=== PATIENT | male | born 2000 | race Caucasian/White ===

== ENCOUNTER 2020-08-10 05:53 | Inpatient (IN) | payer MEDICAID ==
[~2020-08-10] VITALS: Ht 165.1 cm; Wt 83.1 kg
[2020-08-10] VITALS (9 sets, daily range): BP systolic 108–121; BP diastolic 63–76
[2020-08-10] MEDS ORDERED: SODIUM CHLORIDE 0.9% 1,000 ML ONE (06:14)
[2020-08-10] MEDS ORDERED: NALOXONE HCL 1 MG/ML SYRINGE IVP ONE (06:15)
[2020-08-10] MEDS ORDERED: SODIUM CHLORIDE 0.9% 1,000 ML IV ONE (06:15)
[2020-08-10 06:21] LABS: BASOPHILS % (AUTO) 0.3 % (0.0-2.0); EOSINOPHILS % (AUTO) 0.2 % (1.0-6.0); HEMATOCRIT 44.5 % (41-53); HEMOGLOBIN 15.1 g/dL (13.5-17.5); LYMPHOCYTES # (AUTO) 2.5 K/uL (1.0-4.8); LYMPHOCYTES % (AUTO) 24.7 % (22.0-44.0); MEAN CORPUSCULAR HEMOGLOBIN 29.1 pg (26.0-34.0); MEAN CORPUSCULAR HGB CONC 33.9 G/dL (31.0-37.0); MEAN CORPUSCULAR VOLUME 86 fL (80-100); MONOCYTES % (AUTO) 9.5 % (2.0-9.0); NEUTROPHILS # (AUTO) 6.5 K/uL (1.8-7.7); NEUTROPHILS % (AUTO) 65.3 % (40.0-70.0); PLATELET COUNT (AUTO) 251 K/uL (150-450); RED BLOOD CELL COUNT(AUTO) 5.17 MIL/uL (4.50-5.90); RED CELL DISTRIBUTION WIDTH 13.5 % (11.5-14.5)
[2020-08-10 06:28] LABS: APPEARANCE,URINE CLEAR (CLEAR); BILIRUBIN,URINE NEGATIVE (NEGATIVE); GLUCOSE, URINE (UA) NEGATIVE (NEGATIVE); KETONES,URINE NEGATIVE (NEGATIVE); LEUKOCYTE ESTERASE ,URINE NEGATIVE (NEGATIVE); NITRATE,URINE NEGATIVE (NEGATIVE); OCCULT BLOOD,URINE SMALL (NEGATIVE); PH,URINE 5.5 (5.0-8.0); PROTEIN,URINE NEGATIVE (NEGATIVE); UROBILINOGEN,URINE 0.2 mg/dL (<=1.0)
[2020-08-10 06:35] LABS: AMPHET/METH SCREEN,URINE NEGATIVE (NEGATIVE); BARBITURATE SCREEN, URINE NEGATIVE (NEGATIVE); BENZODIAZEPINES SCREEN,URINE POSITIVE (NEGATIVE); CANNABINOID SCREEN,URINE POSITIVE (NEGATIVE); COCAINE SCREEN,URINE POSITIVE (NEGATIVE); METHADONE SCREEN, URINE NEGATIVE (NEGATIVE); OPIATE SCREEN,URINE NEGATIVE (NEGATIVE)
[2020-08-10 06:38] LABS: ANION GAP 13 mmol/L (8-16); CALCIUM, TOTAL 9.1 mg/dL (8.8-10.5); CARBON DIOXIDE 25 mmol/L (22-29); CHLORIDE 105 mmol/L (98-107); CREATININE 0.75 mg/dL (0.60-1.30); GLOMERULAR FILTR. RATE CALC > 60 mL/min (>60); GLUCOSE,RANDOM 95 mg/dL (70-110); POTASSIUM 3.9 mmol/L (3.5-5.1); SODIUM SERUM 143 mmol/L (136-145); UREA NITROGEN, BLOOD 5 mg/dL (7-18)
[2020-08-10 06:39] LABS: PHENCYCLIDINE SCREEN,URINE NEGATIVE (NEGATIVE)
[2020-08-10 06:44] LABS: SALICYLATE 1.3 mg/dL (2.8-20.0)
[2020-08-10 06:49] LABS: INR 0.9 (0.9-1.1)
[2020-08-10 07:02] LABS: ALANINE AMINOTRANSFERASE 126 U/L (12-78); ALBUMIN 3.9 g/dL (3.4-5.0); ALKALINE PHOSPHATASE 112 U/L (46-116); ASPARTATE AMINOTRANSFERASE 43 U/L (15-37); BILIRUBIN,TOTAL 0.2 mg/dL (0.1-1.0); CREATINE KINASE, TOTAL ONLY 106 U/L (39-308); TOTAL PROTEIN, SERUM 7.8 g/dL (6.4-8.2)
[2020-08-10 07:08] LABS: ACETAMINOPHEN < 2 mcg/mL (10-30)
[2020-08-10 08:12] LABS: BACTERIA,URINE None Seen /HPF (None Seen); WBC,URINE None Seen /HPF (0-5)
[2020-08-10 09:20] LABS: COVID AG,FIA SOURCE NASOPHARYNGEAL
[2020-08-10] MEDS ORDERED: LORazepam 2 MG TABLET PO PRN (13:45)
[2020-08-10] MEDS ORDERED: HALOPERIDOL 5 MG TABLET PO PRN (13:45)
[2020-08-11] VITALS (14 sets, daily range): BP systolic 14–124; BP diastolic 60–87
[2020-08-11] MEDS: ZOLPIDEM TARTRATE 10 MG TABLET PO PRN ×2 (00:25→21:32)
[2020-08-11] MEDS ORDERED: ChlordiazePOXIDE HCL 25 MG CAPSULE PO PRN (08:15)
[2020-08-11] MEDS ORDERED: LOPERAMIDE HCL 2 MG CAPSULE PO PRN (08:30)
[2020-08-11] MEDS ORDERED: NICOTINE 14 MG/24 HOUR PATCH TD PRN (08:30)
[2020-08-11] MEDS ORDERED: IBUPROFEN 400 MG TABLET PO PRN (08:30)
[2020-08-11] MEDS ORDERED: PETROLATUM,WHITE 28 GM JELLY TP PRN (08:30)
[2020-08-11] MEDS ORDERED: GuaiFENesin/D-METHORPHAN [SUGAR-FREE] 200-20MG/10 ML SYRUP UDCUP PO PRN (08:30)
[2020-08-11] MEDS ORDERED: MAG HYDROX/AL HYDROX/SIMETH ES 30 ML SUSPENSION UDCUP PO PRN (08:30)
[2020-08-11] MEDS ORDERED: MAGNESIUM HYDROXIDE SUSPENSION 30 ML UDCUP PO PRN (08:30)
[2020-08-11] MEDS ORDERED: ALBUTEROL SULFATE HFA 90 MCG/PUFF 8 GM INHALER IH PRN (08:30)
[2020-08-11] MEDS ORDERED: CloNIDine HCL 0.1 MG TABLET PO PRN (08:30)
[2020-08-11] MEDS ORDERED: ONDANSETRON HCL 4 MG TABLET PO PRN (08:30)
[2020-08-11] MEDS ORDERED: ACETAMINOPHEN 325 MG TABLET PO PRN (08:30)
[2020-08-11] MEDS ORDERED: DOCUSATE SODIUM 100 MG CAPSULE PO PRN (08:30)
[2020-08-12 01:00] VITALS: BP 110/57
[2020-08-12 01:57] VITALS: BP 110/57
[2020-08-12 06:46] VITALS: BP 105/52
[2020-08-12] MEDS ORDERED: ChlordiazePOXIDE HCL 25 MG CAPSULE PO PRN (07:00)
[2020-08-12 08:57] VITALS: BP 125/68
[2020-08-12] MEDS ORDERED: ChlordiazePOXIDE HCL 25 MG CAPSULE PO SCH (09:00)
[2020-08-14] MEDS ORDERED: ChlordiazePOXIDE HCL 10 MG CAPSULE PO PRN (07:00)
[2020-08-14] MEDS ORDERED: ChlordiazePOXIDE HCL 10 MG CAPSULE PO SCH (09:00)
[2020-08-14 09:42] LABS: HEMOGLOBIN A1C 5.1 % (3.8-5.6)
[2020-08-14 10:01] LABS: CHOL/HDL RATIO 5.3 (4.2-7.3); CHOLESTEROL 219 mg/dL (131-200); FREE T4 (FREE THYROXINE) 0.97 ng/dL (0.76-1.46); HDL CHOLESTEROL 41 mg/dL (40-60); LDL CHOL (CALC.) 154 mg/dL (0-130); THYROID STIMULATING HORMONE 2.78 uIU/mL (0.36-3.74); TRIGLYCERIDES 122 mg/dL (15-150)
[2020-08-15] MEDS ORDERED: ChlordiazePOXIDE HCL 10 MG CAPSULE PO PRN (07:00)
== END 2020-08-12 13:15 | disposition home or self-care (01) | DRG 885 ==
LOC: EMS 05:54 → B2S 12:47
PROVIDERS: ADMIT Psychiatry & Neurology Child & Adolescent Psychiatry; ATTEND Psychiatry & Neurology Child & Adolescent Psychiatry
DX: F33.2 Major depressive disorder, recurrent severe without psychotic features (principal); T42.4X2A Poisoning by benzodiazepines, intentional self-harm, initial encounter; R45.851 Suicidal ideations; T40.7X2A Poisoning by cannabis (derivatives), intentional self-harm, initial encounter; F41.9 Anxiety disorder, unspecified; E66.9 Obesity, unspecified; F10.10 Alcohol abuse, uncomplicated; Z20.822 Contact with and (suspected) exposure to COVID-19; Y90.6 Blood alcohol level of 120-199 mg/100 ml; T40.5X2A Poisoning by cocaine, intentional self-harm, initial encounter; Z68.30 Body mass index [BMI] 30.0-30.9, adult; Y92.89 Other specified places as the place of occurrence of the external cause
CPT/HCPCS: 71045; 80053; 80061; 81001; 82550; 83036; 84436; 84439; 84443; 85025; 85610; 85730; 93005; 99291; G0480; G0481; J2310; J7030; 36415-L1; 36415-TC